=== PATIENT | female | born 1990 | race Caucasian/White ===

== ENCOUNTER 2020-09-29 01:55 | Inpatient (IN) ==
[2020-09-29] MEDS ORDERED: LACTATED RINGER'S 1,000 ML IV ONE (02:38)
[2020-09-29 03:01] LABS: Basophils # (auto) 0.02 K/uL (0-0.2); Basophils % (auto) 0.2 %; Eosinophils # (auto) 0.06 K/uL (0-0.5); Eosinophils % (auto) 0.5 %; Hematocrit (blood only) 37.8 % (37-47); Hemoglobin 12.7 g/dL (12.0-16.0); Immature Granulocytes % (auto) 1.6 %; Lymphocytes % (auto) 18.4 %; Mean Corpuscular Hemoglobin 30.9 pg (25-34); Monocytes # (auto) 0.75 K/uL (0.11-0.59); Neutrophils # (auto) 9.19 K/uL (1.4-6.5); Neutrophils % (auto) 73.3 %; Platelet Count 127 K/uL (130-400); RDW Coefficient of Variation 15.7 % (11.5-14.5); RDW Standard Deviation 52.9 fL (36.4-46.3); Red Blood Count 4.11 M/uL (4.2-5.4); White Blood Count 12.52 K/uL (4.8-10.8)
[2020-09-29 03:03] LABS: Mean Corpuscular Hgb Conc 33.6 g/dL (32-36)
[2020-09-29] MEDS ORDERED: OXYTOCIN 30 UNITS/500 ML BAG IV PRN (03:51)
[2020-09-29] MEDS ORDERED: ceFAZolin 2000MG 2,000 MG/15 ML SYR IV STA (03:51)
[2020-09-29] MEDS ORDERED: LACTATED RINGER'S 1,000 ML IV PRN (03:51)
--- NOTE | 2020-09-29 03:58 | Obstetrical Progress Note ---
Date of Service September 29, 2020 Subjective Admit Note 30 F P2012 at 38.6 weeks admitted to L&D in labor with a history of 2 prior C- sections. GBS is negative. Covid is negative. Will proceed with repeat C- section and bilateral tubal ligation. Results & Data ([facility]) Vital Signs (Past 12 Hours) Vital Signs Temp Resp 09/29/20 02:13 36.8 C 18
[2020-09-29] MEDS ORDERED: MoRPHine SULFATE PF 1 MG/ML 10 ML AMP/VIAL ONE (04:07)
[2020-09-29] MEDS ORDERED: ONDANSETRON INJ 2 MG/ML 2 ML VIAL ONE (04:07)
[2020-09-29] MEDS ORDERED: fentaNYL citrate 100 MCG/2 ML VIAL ONE (04:07)
[2020-09-29] MEDS ORDERED: OXYTOCIN 10 UNITS/ML VIAL ONE ×3 (04:07→05:12)
[2020-09-29] MEDS ORDERED: PHENYLEPHRINE 100MCG/ML 5ML SYR ONE (04:07)
--- NOTE | 2020-09-29 04:11 | Anesthesiology Consultation ---
Date of Service September 29, 2020 Assessment & Plan (1) Encounter for pre-operative examination: Chart Review Chart Review: Acceptable Risk for Surgery and Patient NOT seen in Pre Admission Testing Consults Requested none History Surgery Operation Date: 09/29/20 03:50 Proposed Procedures p Section in LD - Veto Chapin MD Height/Weight Height: 5 ft 3 in Weight: 116.573 kg Allergies Allergy/AdvReac Type Severity Reaction Status Date / Time nickel Allergy Mild Rash Verified 09/29/20 03:50 Medications Home Medications Medication Instructions Recorded Confirmed Last Taken albuterol sulfate 2 puffs INH Q4H PRN #18 gm 09/09/19 09/29/20 Unknown albuterol sulfate 2.5 mg INH Q4H PRN #75 ml 09/09/19 09/29/20 Unknown budesonide-formoterol [Symbicort] 2 puff INHALATION BID PRN 09/09/19 09/29/20 09/09/19 [id number] 1 tab PO DAILY 09/29/20 09/29/20 09/28/20 20:00 [] NPO Date Last Intake of Fluids: 09/28/20 Time Last Intake of Fluids: 00:00 Date Last Intake of Solids: 09/28/20 Time Last Intake of Solids: 18:00 Past Medical History Medical History Asthma Bipolar 1 disorder H/O gastroesophageal reflux (GERD) Migraine PTSD (post-traumatic stress disorder) Exercise / Class Metabolic Activity III < 4 Walking/Shop/Light housework Past Surgical History Surgical History H/O section Past Anesthesia History No Hx of Anesthesia Complications and No Family Hx of Anesthesia Complications History of PONV No Hx of PONV and No Hx of Motion Sickness Social History Smoking Status: Current every day smoker tobacco type: cigarettes Smoking cigarettes per day: 1 Do You Dip or Chew Tobacco: No Hx Alcohol Use: No Hx Substance Use: No Physical Exam Vital Signs Last Vital Signs Temp 36.8 C 09/29/20 02:13 Resp 18 09/29/20 02:13 Testing Laboratory Results 09/29/20 02:51
--- NOTE | 2020-09-29 04:11 | History & Physical Report ---
Date of Service September 29, 2020 Assessment & Plan (1) S/P repeat low transverse : History of Present Illness Primary Care Provider: Bruna Boston PA-C Allergies Allergy/AdvReac Type Severity Reaction Status Date / Time nickel Allergy Mild Rash Verified 09/29/20 03:50 Home Medications Medication Instructions Recorded Confirmed Type albuterol sulfate 2 puffs INH Q4H PRN #18 gm 09/09/19 09/29/20 Rx albuterol sulfate 2.5 mg INH Q4H PRN #75 ml 09/09/19 09/29/20 Rx budesonide-formoterol [Symbicort] 2 puff INHALATION BID PRN 09/09/19 09/29/20 History [id number] 1 tab PO DAILY 09/29/20 09/29/20 History [] Past Med/Surg History Medical History (Updated 09/29/20 @ 02:21 by Negin Tran RN) Asthma Bipolar 1 disorder H/O gastroesophageal reflux (GERD) Migraine PTSD (post-traumatic stress disorder) Surgical History (Updated 09/29/20 @ 04:11 by Veto Chapin MD) H/O section Social History Smoking Status: Current every day smoker Tobacco Type: Cigarettes Cigarettes Per Day: 1; Do You Dip or Chew Tobacco: No; Hx Alcohol Use: No Hx Substance Use: No Preferred Language: Malay Communication Ability: Effective Last Greaser Required: No Beliefs That Will Affect Care: None marital status: Single Current Living Situation: Family and Significant Other Other Information That Helps Us Care for You: No Feels Safe at Home: Yes Safety Concerns: Feels Safe At This Time Physical Exam Constitutional: WD/WN, vitals as above + obese and + overweight uncomfortable in labor Respiratory: normal respiratory effort, lungs clear to auscultation Cardiovascular: Rate/Rhythm: regular rate and regular rhythm Gastrointestinal (Abdomen): Percussion/Palpation: abdomen soft gravid with prior C-dsection scar noted Skin: no rashes, warm and dry Neurologic: PERRL, EOMI, accommodation nl, no face palsy, no dysarthria Cranial Nerves: PERRL Genitourinary: normal external appearance OB Exam Abdomen: + vertex Manual OB Exam: + cervical dilation 1 cm OB Exam Monitor Tracing: + external FHT monitor used, + external uterine monitor used, + category I and + normal FHT variability Results & Data Results & Data ([facility]) Vital Signs (Past 12 Hours) Vital Signs Temp Resp 09/29/20 02:13 36.8 C 18 Code Status & VTE Plan VTE Prophylaxis Plan VTE Prophylaxis will be ordered: No
[2020-09-29] MEDS: CITRIC ACID/SODIUM CITRATE 15 ML UDC ONE ×2 (04:18→08:37)
[2020-09-29] MEDS ORDERED: ceFAZolin 1000MG 1,000 MG/7.5 ML SYR IV ONE (04:33)
[2020-09-29] MEDS ORDERED: HYDROmorphone INJ 0.5 MG/0.5 ML SYR IV PRN (04:43)
[2020-09-29] MEDS ORDERED: ePHEDrine sulfate 50 MG/ML AMP IV PRN (04:43)
[2020-09-29] MEDS ORDERED: MoRPHine SULFATE PF 1 MG/ML 10 ML AMP/VIAL INT SPINAL ONE (04:43)
[2020-09-29] MEDS ORDERED: ONDANSETRON INJ 2 MG/ML 2 ML VIAL IV PRN ×2 (04:43→22:43)
[2020-09-29] MEDS ORDERED: NALOXONE HCL 0.08 MG in SYRINGE 1.8 ML IV PRN (04:43)
[2020-09-29] MEDS ORDERED: diphenhydrAMINE 50 MG/ML VIAL IV PRN ×2 (04:43→22:43)
[2020-09-29] MEDS ORDERED: NALOXONE HCL 1 MG in SODIUM CHLORIDE 0.9% 1000ML 1,000 ML IV PRN (04:43)
[2020-09-29] MEDS ORDERED: LACTATED RINGER'S 500 ML IV PRN (04:43)
[2020-09-29] MEDS ORDERED: MoRPHine SULFATE 2 MG/ML CARP IV PRN (04:43)
[2020-09-29] MEDS ORDERED: NALOXONE HCL 0.4 MG/1 ML VIAL/CARP IV PRN (04:43)
[2020-09-29] MEDS ORDERED: DC INTRASPINAL MORPHINE SCH (04:45)
[2020-09-29] MEDS ORDERED: SODIUM CHLORIDE 0.9% 1000ML 1,000 ML IV SCH (04:45)
[2020-09-29] MEDS ORDERED: NO NARCOTICS OR SEDATIVES SCH (04:45)
--- NOTE | 2020-09-29 05:48 | Post Operative Brief Note ---
Immediate Post Op Note v1 Date of Surgery September 29, 2020 Pre & Post Diagnosis Operation Date: 09/29/20 03:50 Pre-Op Diagnosis: 1. Term 2. Desires Repeat Section with Tubal Ligation Post-Op Diagnosis: Same as Preop Repeat Section with Tubal Ligation for a viable baby girl at [address] Chapin I identified the patient and participated in the time-out.: Yes Procedure Operation Date: 09/29/20 03:50 Actual Procedures p Repeat Section in LD with a tubal ligation at 0456 for a viable baby girl under Dr Chapin's services. - Veto Chapin MD Surgeon Veto Chapin MD Power Generation Engineer Dr. Don Estimated Blood Loss 650 Findings Consistent with Post-Op Diagnosis live female Apgars 8/8 7lb. 5 oz. Fluids LR 1250 Specimens cord blood placenta Drains Tinajero Catheter (Inserted prior to procedure and draining clear yellow urine. Output monitored by anesthesia) Anesthesia Type Spinal Complications none Disposition Accompanied Patient To Recovery: Yes Disposition: L&D Overlapping Procedure I was present for: the critical portions of procedure. I was immediately available: during the entire case. Back up surgeon: used during listed procedure.
--- NOTE | 2020-09-29 05:55 | Anesthesiology Progress Note ---
Date of Service September 29, 2020 Anesthesia Post Procedure Vital Signs Vital Signs: Temp Pulse Resp BP Pulse Ox 09/29/20 05:52 60 128/64 09/29/20 05:49 75 99 09/29/20 05:46 88 114/56 L 09/29/20 05:44 92 H 99 09/29/20 02:13 36.8 C 18 Transfer of Care Handoff Completed per policy Notes Mental Status: alert / awake / arousable and participated in evaluation Patient Amnestic to Procedure: No Nausea / Vomiting: adequately controlled Pain: adequately controlled Airway Patency, RR, SpO2: stable & adequate BP & HR: stable & adequate Hydration State: stable & adequate Neuraxial Anesthesia: was administered and sensory block is resolving Anesthetic Complications: no major complications apparent and Pt Satisfied with anesthetic care
[2020-09-29] MEDS ORDERED: ALBUTEROL 0.083% NEBU SOLN 3 ML VIAL INH PRN (06:21)
[2020-09-29] MEDS ORDERED: DIPHTHERIA/TETANUS/PERTUSSIS 0.5 ML SYR/VIAL IM ONE (06:21)
[2020-09-29] MEDS ORDERED: HYDROCORTISONE ACETATE 25 MG SUPP PR PRN (06:21)
[2020-09-29] MEDS ORDERED: BENZOCAINE 20% AER SPR 82.5 GM CAN EXT PRN (06:21)
[2020-09-29] MEDS ORDERED: SENNA 8.6 MG TAB PO PRN (06:21)
[2020-09-29] MEDS ORDERED: ALBUTEROL HFA 8 GM INHALER INH PRN (06:21)
[2020-09-29] MEDS ORDERED: SUPERCREAM 0.870% 15 GM JAR EXT PRN (06:21)
[2020-09-29] MEDS ORDERED: MAGNESIUM HYDROXIDE SUSP 30 ML UDC PO PRN (06:21)
[2020-09-29] MEDS: OXYTOCIN 20 UNITS in LACTATED RINGER'S 1,000 ML IV SCH ×2 (08:19→19:41)
[2020-09-29] MEDS: LACTATED RINGER'S 1,000 ML IV SCH ×2 (08:38→16:16)
[2020-09-29] MEDS ORDERED: NON-FORMULARY MEDICATION (Prenatal Multivit-Min-Fe-Fa 1 mg Tablet) PO SCH (09:00)
[2020-09-29] MEDS: PRENATAL VITAMIN 1 TAB PO SCH (10:11)
[2020-09-29] MEDS: FERROUS SULFATE 325 MG TAB PO SCH (10:11)
[2020-09-29] MEDS: DOCUSATE SODIUM 100 MG CAP PO SCH (10:11)
[2020-09-29] MEDS: SIMETHICONE 80 MG CHEW PO SCH ×3 (10:11→16:22)
[2020-09-29] MEDS: FLUTICASONE/VILANTEROL 200/25MCG 14 PUFFS/INHALER INH SCH (10:14)
[2020-09-29] MEDS: KETOROLAC 30 MG/ML VIAL IV PRN ×2 (10:37→16:22)
--- NOTE | 2020-09-29 13:57 | Operative Report (OR) ---
DATE OF OPERATION: 09/29/2020 PREOPERATIVE DIAGNOSES: Term elective repeat section, in labor, voluntary sterilization. POSTOPERATIVE DIAGNOSES: Term elective repeat section, in labor, voluntary sterilization. PROCEDURE: Repeat section, low segment transverse and bilateral tubal ligation with Filshie clips. CLINICAL HISTORY: The patient is a 30-year-old female, para 2-0-1-2, at 38 weeks and 6 days, admitted in active labor. The patient has had 2 prior sections and is not a candidate for and would like a tubal ligation. She was given an informed consent, risks, benefits, alternatives to the procedure. Consents were signed. Timeout was called prior to the start of the procedure and antibiotics were given 3 grams Ancef preop. ESTIMATED BLOOD LOSS: 650 mL. TOTAL FLUIDS: 1250 mL. URINE: 150 mL. COMPLICATIONS: None. FINDINGS: Live female, Apgars 8 and 8, 7 pounds 5 ounces, vertex presentation. SPECIMENS: Cord blood and placenta. Tinajero with 150 mL of clear urine. DESCRIPTION OF PROCEDURE: After satisfactory spinal anesthesia, the patient was prepped and draped in usual sterile fashion. A low Pfannenstiel incision through a prior scar was then made entering into the abdominal cavity in successive layers without difficulty. Upon entering into the peritoneal cavity, the Ovi retractor was placed. Pickups with teeth and Metzenbaum scissors were used to create a bladder flap. The incision was made high up on the lower uterine segment. The incision was nicked. Amniotic fluid was noted to be clear. The incision was widened in the AP diameter. Infant was then delivered from the vertex presentation with the aid of fundal pressure delivering a live female, Apgars were 8 and 8. weight 7 pounds 5 ounces. Delayed cord clamping. After the cord was clamped and cut, cord blood was obtained. Placenta delivered spontaneously and intact. Baby to the Isolette in stable condition. After the placenta was removed, the uterus was then exteriorized. Ring forceps were then placed on both angles and inferior margin and then another ring was used to dilate the cervix. This uterine cavity was closed with a 1-layer closure using 0 Vicryl suture in a continuous interlocking fashion. Several [id number] sutures in the midline were then used to close the uterus. The lower uterine incision was inspected, no active bleeding was noted. The contents of the pelvic and abdominal cavity were then irrigated to clear. The tubes were then isolated. Two Filshie clips were serially placed on both the right and left tube without difficulty. The Ovi retractor was then removed. The uterus was placed back into the normal anatomical position. Lower uterine segment was inspected, no active bleeding was noted. The initial sponge, needle, and instrument count were found to be correct. The muscle was then reapproximated in [id number] sutures with 0 Vicryl suture. Fascia was then reapproximated from both ends using #1 Vicryl suture in a continuous fashion. Subcuticular space was irrigated. Bleeders were then cauterized with the Bovie. A 3-0 plain suture was used to close the subcuticular layer followed by irrigation and cautery of any bleeders and the skin was then reapproximated with josr. Telfa and ABD dressing were applied. Clear urine was noted from the Tinajero. EBL 650 mL. Total fluids 1250 mL. Urine output 150 mL. Please note, Dr. Don, the delivery assistant was needed for retraction and for help with delivery due to the patient's class 3 obesity. I was present for the entire surgical case. I attest to the content of the Intraoperative Record and any orders documented therein. Any exceptions are noted below. ENRRIQUE
[2020-09-29] MEDS ORDERED: OXYTOCIN 20 UNITS in LACTATED RINGER'S 1,000 ML IV SCH (18:45)
[2020-09-29 19:37] LABS: Albumin Level 1.8 gm/dl (3.4-5.0); BUN Creatinine Ratio 15.4 (10-20); Creatinine Clr Calc Pharmacy 127.2 ml/min; Est GFR (African American) 115.6; Est GFR (Non-African American) 99.8; Potassium 3.8 mmol/L (3.5-5.1)
[2020-09-29 19:39] LABS: Albumin Globulin Ratio 0.6 (0.9-2); Bilirubin,Total 0.2 mg/dl (0.2-1); Globulin 2.9 gm/dl (2.5-4.0); Total Protein 4.7 gm/dl (6.4-8.2)
[2020-09-29 21:02] LABS: Basophils # (auto) 0.01 K/uL (0-0.2); Basophils % (auto) 0.1 %; Eosinophils # (auto) 0.03 K/uL (0-0.5); Eosinophils % (auto) 0.3 %; Hematocrit (blood only) 28.7 % (37-47); Immature Granulocytes # (auto) 0.09 K/uL (0.00-0.02); Immature Granulocytes % (auto) 0.9 %; Lymphocytes # (auto) 1.52 K/uL (1.2-3.4); Lymphocytes % (auto) 15.3 %; Mean Corpuscular Hemoglobin 31.6 pg (25-34); Mean Corpuscular Hgb Conc 33.8 g/dL (32-36); Mean Corpuscular Volume 93.5 fL (80-100); Mean Platelet Volume 9.6 fL (7.4-10.4); Monocytes # (auto) 0.55 K/uL (0.11-0.59); Monocytes % (auto) 5.5 %; Neutrophils # (auto) 7.76 K/uL (1.4-6.5); Neutrophils % (auto) 77.9 %; Platelet Count 113 K/uL (130-400); RDW Coefficient of Variation 15.8 % (11.5-14.5); RDW Standard Deviation 53.6 fL (36.4-46.3); Red Blood Count 3.07 M/uL (4.2-5.4); White Blood Count 9.96 K/uL (4.8-10.8)
[2020-09-29 21:03] LABS: Hemoglobin 9.7 g/dL (12.0-16.0)
[2020-09-29] MEDS ORDERED: KETOROLAC 30 MG/ML VIAL IV PRN (22:43)
[2020-09-29] MEDS ORDERED: PROMETHAZINE HCL 25 MG in SODIUM CHLORIDE 0.9% 50 ML IV PRN (22:43)
[2020-09-29] MEDS ORDERED: MEPERIDINE HCL 50 MG/ML CARP IV PRN (22:43)
[2020-09-29] MEDS ORDERED: diphenhydrAMINE Capsule 25 MG CAP PO PRN (22:43)
[2020-09-30] MEDS: oxyCODONE/ACETAMINOPHEN 5mg/325mg TAB PO PRN ×4 (01:24→20:04)
[2020-09-30 06:24] LABS: Basophils # (auto) 0.01 K/uL (0-0.2); Basophils % (auto) 0.1 %; Eosinophils # (auto) 0.06 K/uL (0-0.5); Eosinophils % (auto) 0.5 %; Hematocrit (blood only) 29.3 % (37-47); Hemoglobin 9.8 g/dL (12.0-16.0); Immature Granulocytes # (auto) 0.12 K/uL (0.00-0.02); Immature Granulocytes % (auto) 1.1 %; Lymphocytes # (auto) 1.98 K/uL (1.2-3.4); Lymphocytes % (auto) 17.4 %; Mean Corpuscular Hemoglobin 31.5 pg (25-34); Mean Corpuscular Hgb Conc 33.4 g/dL (32-36); Mean Corpuscular Volume 94.2 fL (80-100); Mean Platelet Volume 10.1 fL (7.4-10.4); Monocytes # (auto) 0.67 K/uL (0.11-0.59); Monocytes % (auto) 5.9 %; Neutrophils # (auto) 8.53 K/uL (1.4-6.5); Platelet Count 125 K/uL (130-400); Red Blood Count 3.11 M/uL (4.2-5.4); White Blood Count 11.37 K/uL (4.8-10.8)
[2020-09-30] MEDS: SIMETHICONE 80 MG CHEW PO SCH ×5 (07:57→20:06)
[2020-09-30] MEDS: DOCUSATE SODIUM 100 MG CAP PO SCH ×2 (07:57→20:04)
[2020-09-30] MEDS: PRENATAL VITAMIN 1 TAB PO SCH (07:58)
[2020-09-30] MEDS: IBUPROFEN 600 MG TAB PO PRN ×3 (07:58→20:05)
[2020-09-30] MEDS: FERROUS SULFATE 325 MG TAB PO SCH (07:58)
[2020-09-30] MEDS: FLUTICASONE/VILANTEROL 200/25MCG 14 PUFFS/INHALER INH SCH (08:01)
--- NOTE | 2020-09-30 11:10 | Obstetrical Progress Note ---
Date of Service September 30, 2020 Assessment & Plan (1) delivery delivered: C/sec day #2 pt doing well continue care Subjective Ambulation: ambulating normally Voiding: no voiding problems Passing Gas:: Yes Diet Tolerance:: clear liquids Lochia:: Small Feeding Type:: breast feeding Review of Systems All systems reviewed & are unremarkable except as noted in HPI & below Physical Exam Constitutional WD/WN, vitals as above well developed and well nourished Eyes PERRL, conjunctivae normal, anicteric sclerae ENMT external ear and nose normal, oropharynx normal Neck trachea midline, no thyromegaly Respiratory normal respiratory effort, lungs clear to auscultation Cardiovascular RRR, no murmur, no edema Chest (Breasts) normal inspection/palpation of breasts Gastrointestinal (Abdomen) normal bowel sounds, soft, nontender, no hepatosplenomegaly Musculoskeletal no cyanosis or clubbing, extremities motor strength 5/5 Skin no rashes, warm and dry + incision (Clean,dry and intact) Neurologic patellar DTR's 2+ bilat, sensation intact Psychiatric A+Ox3, euthymic affect Genitourinary normal external appearance Lymphatic no cervical or axillary lymphadenopathy Results & Data ([facility]) Vital Signs (Past 12 Hours) Vital Signs Temp Pulse Pulse Resp BP Pulse Ox 09/30/20 07:47 36.6 C 95 H 18 103/71 97 09/30/20 03:43 36.6 C 99 H 18 107/74 09/29/20 23:18 37.3 C 108 H 18 132/82
[2020-09-30] MEDS ORDERED: bisacodyL 5 MG TABEC PO SCH (20:00)
[2020-10-01] MEDS ORDERED: bisacodyL 10 MG SUPP PR PRN (05:42)
[2020-10-01] MEDS: DOCUSATE SODIUM 100 MG CAP PO SCH (08:06)
[2020-10-01] MEDS: FERROUS SULFATE 325 MG TAB PO SCH (08:06)
[2020-10-01] MEDS: SIMETHICONE 80 MG CHEW PO SCH (08:06)
[2020-10-01] MEDS: PRENATAL VITAMIN 1 TAB PO SCH (08:06)
[2020-10-01 08:08] LABS: Hemoglobin 10.5 g/dL (12.0-16.0)
[2020-10-01 08:12] VITALS: BP 114/78; PULSE 90; TEMP 98.2; O2SAT 99
[2020-10-01] MEDS: FLUTICASONE/VILANTEROL 200/25MCG 14 PUFFS/INHALER INH SCH (09:21)
--- NOTE | 2020-10-01 10:09 | Surgery Progress Note ---
Date of Service October 01, 2020 Assessment & Plan Admission and Anticipated Discharge Date Admission Date: September 29, 2020 Subjective POD#3 stable passing gas tolerating diet out of bed Physical Exam Constitutional: WD/WN, vitals as above comfortable incision c/d/i abdomen soft and non-tender neg edema neg Jose's plans to be discharged today Results & Data ([facility]) Vital Signs (Past 12 Hours) Vital Signs Temp Pulse Resp BP Pulse Ox 10/01/20 08:00 36.8 C 90 18 114/78 99 09/30/20 23:20 36.6 C 95 H 18 122/81 97 Laboratory Results Laboratory Results - last 72 hr 09/29/20 09/29/20 09/29/20 02:49 02:51 18:56 WBC 12.52 H 9.96 RBC 4.11 L 3.07 L Hgb 12.7 9.7 L D Hct 37.8 28.7 L MCV 92.0 93.5 MCH 30.9 31.6 MCHC 33.6 33.8 RDW Std Deviation 52.9 H 53.6 H RDW Coeff of Bisi 15.7 H 15.8 H Plt Count 127 L 113 L MPV 10.0 9.6 Immature Gran % (Auto) 1.6 0.9 Neut % (Auto) 73.3 77.9 Lymph % (Auto) 18.4 15.3 [place] % (Auto) 6.0 5.5 Eos % (Auto) 0.5 0.3 Baso % (Auto) 0.2 0.1 Neut # (Auto) 9.19 H 7.76 H Lymph # (Auto) 2.30 1.52 [place] # (Auto) 0.75 H 0.55 Eos # (Auto) 0.06 0.03 Baso # (Auto) 0.02 0.01 Immature Gran # (Auto) 0.20 H 0.09 H Sodium Potassium Chloride Carbon Dioxide Anion Gap BUN Creatinine Est Cr Clr Drug Dosing Est GFR ( Amer) Est GFR (Non-Af Amer) BUN/Creatinine Ratio Glucose Calcium Total Bilirubin AST ALT Alkaline Phosphatase Total Protein Albumin Globulin Albumin/Globulin Ratio Blood Type A Positive Antibody Screen NEGATIVE 09/29/20 09/30/20 10/01/20 18:56 06:03 07:39 WBC 11.37 H RBC 3.11 L Hgb 9.8 L 10.5 L Hct 29.3 L 32.0 L MCV 94.2 MCH 31.5 MCHC 33.4 RDW Std Deviation 55.0 H RDW Coeff of Bisi 16.0 H Plt Count 125 L MPV 10.1 Immature Gran % (Auto) 1.1 Neut % (Auto) 75.0 Lymph % (Auto) 17.4 [place] % (Auto) 5.9 Eos % (Auto) 0.5 Baso % (Auto) 0.1 Neut # (Auto) 8.53 H Lymph # (Auto) 1.98 [place] # (Auto) 0.67 H Eos # (Auto) 0.06 Baso # (Auto) 0.01 Immature Gran # (Auto) 0.12 H Sodium 137 Potassium 3.8 Chloride 106 Carbon Dioxide 23 Anion Gap 8.0 BUN 12 Creatinine 0.79 Est Cr Clr Drug Dosing 127.2 Est GFR ( Amer) 115.6 Est GFR (Non-Af Amer) 99.8 BUN/Creatinine Ratio 15.4 Glucose 128 H Calcium 8.0 L Total Bilirubin 0.2 AST 19 ALT 12 Alkaline Phosphatase 147 H Total Protein 4.7 L Albumin 1.8 L Globulin 2.9 Albumin/Globulin Ratio 0.6 L Blood Type Antibody Screen
--- NOTE | 2020-10-06 19:20 | Discharge Summary (DS) ---
REASON FOR ADMISSION: The patient is a 30-year-old female, para 2-0-1-2 at 38 weeks and 5 days, admitted in active labor. The patient had 2 prior sections and not a candidate for and would like a tubal ligation. She underwent a repeat section with tubal ligation, delivering a live female, Apgars were 8 and 8. weight was 7 pounds 5 ounces. Hospital course was uncomplicated. The patient is discharged home on the second postoperative day, 10/01/2020. Home going instructions were given. Condition on discharge was stable. Regular diet on discharge. Medications on discharge include Motrin and Percocet. Follow up will be in the office in 1 week for an incision check.
== END 2020-10-01 11:45 | disposition home or self-care (01) | DRG 785 ==
LOC: OPB 01:55 → 4S1 02:11 → 4S2 08:32
DX: Z30.2 Encounter for sterilization; O34.211 Maternal care for low transverse scar from previous cesarean delivery; O99.334 Smoking (tobacco) complicating childbirth; Z37.0 Single live birth; Z3A.38 38 weeks gestation of pregnancy; F17.210 Nicotine dependence, cigarettes, uncomplicated